=== PATIENT | female | born 1955 | race Caucasian/White ===

== ENCOUNTER 2019-10-30 17:11 | Emergency (ER) | payer MEDICAID, SELFPAY ==
[2019-10-30] VITALS (7 sets, daily range): BP systolic 140–148; BP diastolic 69–125; PULSE 88–89; RESP 15–16; TEMP 36.4; O2SAT 96–97; BMI 22.5
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
[2019-10-30 18:39] LABS: Absolute Lymphocyte Count 1.58 X10^3/uL (0.83-4.51); Basophil# 0.05 X10^3/uL; Basophil% 0.7 % (0-1); Eosinophil# 0.08 X10^3/uL; Eosinophils% 1.1 % (0-5); Hematocrit 38.2 % (37-47); Hemoglobin 13.1 g/dL (12.0-15.0); Lymphocyte # 1.58 X10^3/ul (4.0); Lymphocyte % 21.4 % (19-41); Mean Corp Hgb Conc 34.3 g/dL (32-36); Mean Corpuscular Volume 90.3 fL (81-99); Mean Platelet Vol. 10.4 fl (6.2-12.0); Monocyte# 0.65 X10^3/uL; Monocyte% 8.8 % (0-10); NRBC Flagged by Analyzer 0 % (0-5); Neutrophil % 67.7 % (47-70); Platelet Count 249 K/mm3 (150-450); RBC Distribution Width CV 11.9 % (11.6-14.6); RBC Distribution Width SD 39.3 fl (35.1-43.9); Red Blood Count 4.23 M/mm3 (4.2-5.4); White Blood Count 7.4 K/mm3 (4.4-11.0)
[2019-10-30 18:47] LABS: Anion Gap 9 (5-15); BUN 9 mg/dL (7-18); BUN/Creat Ratio 11.4 RATIO (10-20); Calcium,Total 8.9 mg/dL (8.5-10.1); Chloride 96 mmol/L (98-107); Creatinine, Serum 0.79 mg/dL (0.55-1.02); EST Glomerular Filtration Rate 78 mL/min (>60); Est Glom Filt Rate - Afr Amer 94 mL/min (>60); Estimated Creatinine Clearance 62.12 ml/min; Glucose 102 mg/dL (74-106); Potassium 3.1 mmol/L (3.5-5.1); Sodium Level 130 mmol/L (136-145)
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
[2019-10-30 18:59] LABS: Amphetamine Urine VISTA NEGATIVE (<1000 ng/mL); Barbiturate Urine VISTA NEGATIVE (< 200 ng/mL); Benzodiazepine Urine VISTA NEGATIVE (< 200 ng/mL); Cocaine Urine VISTA NEGATIVE (< 300 ng/mL); Ecstacy Urine VISTA NEGATIVE (< 500 ng/mL); Methadone Urine VISTA NEGATIVE (< 300 ng/mL); PCP Urine VISTA NEGATIVE (< 25 ng/mL); THC Urine VISTA NEGATIVE (< 50 ng/mL); Vista UDS pH Range 6
[2019-10-30 19:14] LABS: Alcohol, Blood (Medical)-Serum < 3.0 mg/dL
[2019-10-30 19:24] LABS: Internal QC Validated? YES +Cl - CLEAR BKGD; Pregnancy, Serum, hCG Quali. NEGATIVE Negative
--- NOTE | 2019-10-30 19:32 | ED.RN ---
MARIO CALLED IN, SOMEONE WILL BE IN SOON TO SEE THIS PT
--- NOTE | 2019-10-30 20:24 | CM.ED ---
Social Work Telephone call from patient sister, Miguelina Denson ([phone]). Miguelina states to believe that patient has had mental health issues for some time. Miguelina states that patient wears wig on head as patient cuts hair short. Miguelina states to not be sure what is under the wig and that the last time Miguelina saw patient hair was when patient was in her 30's and it looked like she was in the Holocaust. Miguelina states she needs help. Miguelina states that patient has support from family but we don't seem to be able to help her. Miguelina reports that patient was staying with Miguelina a few days ago. Miguelina states to have found patient gaging self in bathroom and then patient just stopped and went outside to smoke. Miguelina reports manic like behavior for patient. Miguelina states she will be fine at times and just switch. Miguelina states that patient has become combative and threatening. This oncology social work thanking Miguelina for the above information. Updated medical team. Kobe Woods MSW, ELIZA
--- NOTE | 2019-10-30 21:24 | CM.ED ---
Social Work Telephone call to Crisis, Kimmie as patient is self pay. Kimmie updated on patient case. [facility] to call back and complete assessment. This manager social media faxing patient chart along with social work assessment. Kimmie to call main ED when able to complete crisis assessment. Kobe Woods MSW, ELIZA
[2019-10-30] MEDS: Acetaminophen 325 MG Tablet 650 MG PO (21:25)
--- NOTE | 2019-10-30 23:04 | ED.RN ---
THIS NURSE SPOKE WITH CRISIS FOR AN UPDATE. CRISIS TO CALL BACK IN 30 MINUTES TO SPEAK WITH THE PT WHO WAS UNABLE TO SPEAK AT THIS TIME. DUE TO SANE NURSE COMPLETING SANE ASSESSMENT.
[2019-10-31] VITALS (17 sets, daily range): BP systolic 129–154; BP diastolic 59–87; PULSE 67–86; RESP 14–17; TEMP 36.7; O2SAT 97–98
--- NOTE | 2019-10-31 00:04 | CT_ITS ---
STUDY: CT BRAIN WITHOUT CONTRAST REASON FOR EXAM: Female, 64 years old. PSYCHOSIS AND HALLUCINATIONS RADIATION DOSAGE (If Supplied By Facility): CTDIvol = ( 44.99 ) mGy, DLP = ( 745.49 ) mGycm TECHNIQUE: Transaxial CT imaging of the brain was performed without administration of intravenous contrast material. Individualized dose optimization techniques were used for this CT. COMPARISON: No relevant priors. FINDINGS: Normal soft tissue structures. Normal calvarium. Normal size ventricles and extra-axial spaces for the patient''s age. Normal white matter tracts of the cerebral hemispheres. Normal basal ganglia and thalami. Normal brainstem. Normal cerebellum. There is no intracranial hemorrhage. There are no findings of an acute ischemic infarction. Normal visualized paranasal sinuses. The bilateral mastoid air cells and ossicles are unopacified. CT/Brain/Head without Contrast IMPRESSION: Normal unenhanced CT scan of the brain. Electronically Signed: Tara Vaz MD at 3:23 EDT , Service support ,
--- NOTE | 2019-10-31 00:04 | EKG12_ITS ---
Test Reason : MHC Blood Pressure : / mmHG Vent. Rate : 067 BPM Atrial Rate : 067 BPM P-R Int : 162 ms QRS Dur : 106 ms QT Int : 398 ms P-R-T Axes : 064 -09 083 degrees QTc Int : 420 ms Sinus rhythm with occasional Premature ventricular complexes Nonspecific T wave abnormality Abnormal ECG Confirmed by MCKAYLA CHATTERJEE, PHOEBE ([id number]), editorial specialist TERESA BUTTERFIELD ([id number]) on 11/01/2019 11:30:44 A M Referred By: EDWIN Confirmed By:DONTE BLOCK MD
--- NOTE | 2019-10-31 00:11 | ED.RN ---
NO OLD EKGS IN MUSE
[2019-10-31 01:14] LABS: AST(SGOT) 33 U/L (15-37); Alanine Aminotransfer ALT/SGPT 41 U/L (13-56); Albumin, Serum 4.3 g/dL (3.2-5.0); Alkaline Phosphatase 73 U/L (45-117); Bilirubin, Direct 0.28 mg/dL (0.00-0.30); Protein, Total 7.3 g/dL (6.4-8.2)
--- NOTE | 2019-10-31 01:45 | ED.RN ---
CRISIS ON THE PHONE WITH THE PT
[2019-10-31 03:17] LABS: Mucous, Urine 0 SEEN /hpf (<or=2+); Squamous Epithelial Cells - UA 0 SEEN /hpf (5-10)
[2019-10-31 03:18] LABS: Glucose, Dipstick Normal (Normal); Ketone-Dipstick 15 mg/dl (Negative); Leukocyte Esterase-Dipstick 100 /ul (Negative); Nitrite-Dipstick Negative (Negative); Occult Blood-Urine 25 /ul (Negative); Protein-Dipstick Negative (Negative); Urine Bilirubin Dipstick Negative (Negative); Urine Urobilinogen Normal (Normal); Urine pH 6.5 (5.0 - 8.0)
[2019-10-31 03:25] LABS: Color, Urine Yellow (Yellow); Urine Clarity Clear (Clear)
[2019-10-31 03:26] LABS: Red Blood Cells-Urine 0-5 SEEN /hpf (0-5); White Blood Cells 0-5 SEEN /hpf (0-5)
[2019-10-31 03:27] LABS: Bacteria RARE /hpf (None Seen)
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
--- NOTE | 2019-10-31 08:39 | ED.RN ---
pt bolts from department. this rn follows--security also along. police called. pt in gown only
--- NOTE | 2019-10-31 09:29 | ED.RN ---
PT RETURNED TO ER BY [facility]. PT HAD AGREED TO HAVE PD RETURN HER TO THE HOSPITAL LONG THEY LET HER GO SHOPPING. PT BOUGHT CLOTHES, SHOES AND SOME OTHER MISC ITEMS. PT HAD CLOTHES SHOES AND HER WIG IN PLACE UPON RETURN. PT STATES SHE WANTED TO GET CLOTHES BECAUSE SHE HAS BEEN SITTING IN [facility] [place] FOR DAYS. SHE CONTINUES TO SAY SHE IS MOVING AND GOOD [facility] PICKED ALL OF HER BELONGINGS UP YESTERDAY AT NOON. PT PLACED IN RESTRAINTS AND EXPLAINED WHY SHE WAS IN RESTRAINTS. PT ALSO PLACED ON MONITOR.
--- NOTE | 2019-10-31 10:55 | ED.RN ---
NO UPDATE FROM [facility]; GUANAKO JAIN WITH CRISIS SHE HAS BEEN TRYING TO CALL THEM SINCE [phone] THIS MORNING. NO ANSWER. SHE WILL KEEP TRYING TO CALL THEM.
--- NOTE | 2019-10-31 11:28 | ED.RN ---
THIS NURSE SPOKE WITH THE COUNSELING CENTER, [facility] STILL REVIEWING THE FILE
[2019-10-31] MEDS: Acetaminophen 500 MG Tablet 1000 MG PO ×2 (14:25→21:33)
--- NOTE | 2019-10-31 17:48 | CM.ED ---
Social Work Telephone call to [facility], Kimmie. This licensed social worker inquiring as to status of case. Kimmie states that the last update was that the case was still being reviewed. [facility] plans to call Wade to see if case has been reviewed as the last update was from early this morning. [facility] to call this licensed social worker with update. Kobe HILARIO, ELIZA
--- NOTE | 2019-10-31 17:53 | CM.ED ---
Social Work Telephone call from [facility], patient has been accepted to [facility] and is #5 on the waiting list. Updated medical team. Kobe HILARIO, ELIZA
--- NOTE | 2019-10-31 19:18 | ED.RN ---
CORINA LONGO AND KATHERINE MCCAIN TOOK 2 SETS OF CAR KEYS AND ANOTHER SET OF MISCELLANEOUS KEYS.
[2019-11-01] VITALS (22 sets, daily range): BP systolic 118–153; BP diastolic 74–91; PULSE 66–87; RESP 14–18; TEMP 36.5; O2SAT 98–100
[2019-11-01] MEDS: Acetaminophen 500 MG Tablet 1000 MG PO (07:06)
--- NOTE | 2019-11-01 10:07 | ED.RN ---
SUSY FROM CRISIS CALLED, STATES [facility] WILL NOT HAVE A BED AVAILABLE TODAY, BUT THEY ARE ATTEMPTING TO DIVERT PTS TO OTHER FACILITIES. SHE WILL CALL WITH AN UPDATE ON IF SHE IS ACCEPTED AT ANOTHER FACILITY.
--- NOTE | 2019-11-01 13:51 | ED.RN ---
PT REQUESTED PURSE TO GIVE BELONGINGS TO SISTER. THIS RN TOOK PURSE TO PT ROOM, PT TOOK WALLET OUT OF PURSE AND HANDED TO SISTER. PURSE RETURNED BACK TO [facility].
[2019-11-01] MEDS: Aspirin 81 MG TAB.CHEW PO (14:26)
--- NOTE | 2019-11-01 15:42 | CM.ED ---
SOCIAL WORK Updated by nursing, sister requesting to complete Healthcare Power of Automatic Stacker paperwork for patient. This worker met with sister and discussed Advanced Directives. Explained at this time, due to patient's mental state, unable to complete Advanced Directives. Sister verbalized understanding. Sister reports patient now has Medicaid. Medicaid has been verified with registration. Call to Vidya with Crisis to update patient now has Medicaid. Eligibility information faxed to Crisis at this time. Jack Bolanos, WOODEN SHADE HARDWARE INSTALLER, DESIGN INSERTER
[2019-11-01 16:16] LABS: Probe Check PASS; Specimen Processing Control PASS
--- NOTE | 2019-11-01 17:06 | CM.ED ---
SOCIAL WORK Negative COVID results faxed to Crisis at this time. Jack Bolanos, TICKET DISPATCHER, SENIOR DATA DEVELOPER
--- NOTE | 2019-11-01 19:05 | CM.ED ---
SOCIAL WORK Call to Crisis, spoke with Kimmie to inquire about update on patient. Per Kimmie, patient's referral is pending with [facility]. Kimmie to call [facility] for update and get back to this worker. Jack Bolanos, SINGLE ENDING MACHINE OPERATOR, CREDIT HISTORIAN
--- NOTE | 2019-11-01 19:18 | CM.ED ---
SOCIAL WORK Call from [facility] with [facility]. Per Kimmie, odd bundle worker at [facility] never received fax from [facility]. [facility] states referral re-faxed to [facility] at this time. Awaiting review and acceptance. Jack Bolanos, ADVOCACY DIRECTOR, SMALL ARMS ARTILLERY REPAIRER
--- NOTE | 2019-11-01 21:34 | ED.RN ---
crisis called and updated on patients status. [facility] has received patients chart and are reviewing at this time.
--- NOTE | 2019-11-01 21:44 | ED.RN ---
[facility] called and requesting more information. orders obtained and labs to be redrawn
[2019-11-01 22:03] LABS: Potassium 3.8 mmol/L (3.5-5.1)
--- NOTE | 2019-11-01 22:11 | NURSING ---
[facility] CALLED STATING DOCTOR REFUSED PATIENT
[2019-11-02] VITALS (15 sets, daily range): BP systolic 123–141; BP diastolic 74–95; PULSE 71–84; RESP 14–16; TEMP 36.5; O2SAT 98–99
--- NOTE | 2019-11-02 00:21 | ED.RN ---
[facility] called and requesting additional information. patient pending case review at this time
--- NOTE | 2019-11-02 00:56 | ED.RN ---
Patient chart being reviewed by [facility]. Dr requesting additional lab work to be completed in AM. then faxed to them. orders placed at this time
[2019-11-02] MEDS: Acetaminophen 325 MG Tablet 650 MG PO (06:29)
[2019-11-02 07:50] LABS: Absolute Neutrophil Count 2.7 X10^3/uL (2.0-7.7); Basophil# 0.04 X10^3/uL; Basophil% 0.8 % (0-1); Eosinophil# 0.08 X10^3/uL; Eosinophils% 1.7 % (0-5); Hematocrit 43.6 % (37-47); Hemoglobin 14.8 g/dL (12.0-15.0); Lymphocyte % 31.6 % (19-41); Mean Corp Hgb Conc 33.9 g/dL (32-36); Mean Corpuscular Hgb 31.3 pg (27.0-32.0); Mean Corpuscular Volume 92.2 fL (81-99); Mean Platelet Vol. 10.3 fl (6.2-12.0); Monocyte# 0.39 X10^3/uL; Monocyte% 8.2 % (0-10); NRBC Flagged by Analyzer 0 % (0-5); Neutrophil # 2.73 X10^3/uL (2.7-7.7); Neutrophil % 57.5 % (47-70); Platelet Count 245 K/mm3 (150-450); RBC Distribution Width CV 11.9 % (11.6-14.6); RBC Distribution Width SD 40.4 fl (35.1-43.9); Red Blood Count 4.73 M/mm3 (4.2-5.4); White Blood Count 4.8 K/mm3 (4.4-11.0)
[2019-11-02] MEDS: Loratadine 10 MG Tablet PO (07:55)
[2019-11-02 08:15] LABS: AST(SGOT) 18 U/L (15-37); Alanine Aminotransfer ALT/SGPT 33 U/L (13-56); Albumin, Serum 4.2 g/dL (3.2-5.0); Alkaline Phosphatase 78 U/L (45-117); Anion Gap 5 (5-15); BUN 6 mg/dL (7-18); BUN/Creat Ratio 6.3 RATIO (10-20); Bilirubin, Direct 0.16 mg/dL (0.00-0.30); Calcium,Total 9.2 mg/dL (8.5-10.1); Chloride 101 mmol/L (98-107); Creatinine, Serum 0.95 mg/dL (0.55-1.02); EST Glomerular Filtration Rate 63 mL/min (>60); Est Glom Filt Rate - Afr Amer 76 mL/min (>60); Estimated Creatinine Clearance 51.66 ml/min; Free T3 3.2 pg/mL (2.18-3.98); Globulin 3.3 g/dL (2.2-4.2); Glucose 99 mg/dL (74-106); Potassium 3.9 mmol/L (3.5-5.1); Protein, Total 7.5 g/dL (6.4-8.2); Sodium Level 137 mmol/L (136-145); Thyroid Stim Hormone (TSH) 1.87 uIU/mL (0.358-3.74)
--- NOTE | 2019-11-02 08:33 | ED.RN ---
talked to rigoberto at the counseling center. new labs faxed.
--- NOTE | 2019-11-02 10:15 | ED.RN ---
Rowena from [facility] called requesting a Physician Progress note stating that the patient sill requires psychiatric placement. MD Arias notified.
--- NOTE | 2019-11-02 11:07 | ED.RN ---
faxed dr addendum per request from [facility]
--- NOTE | 2019-11-02 11:07 | ED.RN ---
faxed updated dr Addendum per request from [facility]
--- NOTE | 2019-11-02 12:06 | ED.RN ---
pt accepted at [facility]. pt going to 3rd floor [facility]. number for report [phone]
--- NOTE | 2019-11-02 12:38 | ED.RN ---
[facility] called ETA 1 hour
== END 2019-11-02 14:04 ==
PROVIDERS: Emergency Medicine; Emergency Provider Emergency Medicine
DX: F23 Brief psychotic disorder (principal); I49.3 Ventricular premature depolarization
CPT/HCPCS: 36415; 70450; 80048; 80076; 80307; 80320; 81001; 84132; 84439; 84443; 84481; 84703; 85025; 87086; 87088; 87635; 93005; 94799; 99285; G0480; U0003

== ENCOUNTER 2019-10-30 21:06 | Outpatient (REF) | payer SELFPAY ==
[2019-10-30 17:12] VITALS: BMI 22.5
== END 2019-10-30 23:55 ==
LOC: EDREF 21:06
DX: Z04.41 Encounter for examination and observation following alleged adult rape (principal)